=== PATIENT | male | born 1975 | race Caucasian/White ===

== ENCOUNTER 2019-08-14 13:25 | Emergency (ER) | payer SELFPAY ==
[2019-08-14 13:35] VITALS: BP 138/93; PULSE 97; RESP 18; TEMP 36.4; O2SAT 94; BMI 23.2
--- NOTE | 2019-08-14 13:46 | XR_ITS ---
WS: [id number] PORTABLE CHEST HISTORY: chest pain COMPARISON: 05/03/2016 Lungs are clear and well expanded. No pleural effusion or pneumothorax. Cardiac size: Normal. Mediastinum/Aorta: Normal mediastinum. No osseous abnormality seen. XR/XR chest 1V portable [id number] IMPRESSION: Unremarkable portable chest.
--- NOTE | 2019-08-14 13:46 | ECG_ITS ---
Measurements Intervals [place] Rate: 91 P: 54 LA: 145 QRS: 42 QRSD: 93 T: 64 QT: 340 QTc: 419 SINUS RHYTHM Compared to ECG 05/03/2016 07:29:48 Sinus arrhythmia no longer present Left ventricular hypertrophy no longer present Electronically Signed On 08-14-2019 19:52:32 CDT by Patience Newberry M.D. [id number]
[2019-08-14 14:10] LABS: Basophils % 0.2 %; Eosinophils # 0.1 10^3/uL (0.0-0.8); Eosinophils % 1.1 %; Hematocrit 45.4 % (42.0-52.0); Hemoglobin 15.6 g/dL (11.7-16.6); Lymphocytes # 3.5 10^3/uL (0.8-4.8); Lymphocytes % 30.8 %; Mean Corpuscular HGB Conc 34.4 g/dL (30.0-36.0); Mean Corpuscular Hemoglobin 34.1 pg (28.0-34.0); Mean Corpuscular Volume 99.3 fL (80-94); Mean Platelet Volume 8.9 fL (7.4-10.4); Monocytes # 0.8 10^3/uL (0.2-0.9); Monocytes % 6.7 %; Neutrophils % 60.8 %; Nucleated Red Blood Cells % 0 %; Platelet Count 206 10^3/cmm (130-400); Red Blood Count 4.57 10^6/uL (4.1-5.3); Red Cell Distribution Width 11.7 % (12.1-15.1); White Blood Count 11.4 10^3/uL (4.0-10.0)
[2019-08-14 14:29] LABS: Troponin(5th) Baseline 6 ng/mL (0-15)
[2019-08-14 14:30] LABS: Alanine Aminotransferase 51 U/L (0-41); Albumin Level 4.9 g/dL (3.5-5.2); Alkaline Phosphatase 112 IU/L (40-130); Anion Gap 25.1 (5-19); Aspartate Amino Transferase 65 U/L (0-40); Blood Urea Nitrogen 7 mg/dL (6-20); Calcium 9.5 mg/dL (8.5-10.5); Carbon Dioxide 21 mmol/L (22-29); Chloride 97 mmol/L (98-107); Globulin 2.8 g/dL (1.3-4.6); Glomerular Filtration Rate 179.8 mL/min (90-130); Glucose 85 mg/dL (65-115); Osmolality Calculated 283 mOsm/kg (285-295); Potassium 4.1 mmol/L (3.5-5.1); Sodium 139 mmol/L (136-145); Total Bilirubin 0.4 mg/dL (0.15-1.2); Total Protein 7.7 g/dL (6.6-8.7)
[2019-08-14 15:08] VITALS: BP 136/68; PULSE 76; RESP 18; O2SAT 94
--- NOTE | 2019-08-14 15:46 | ECG_ITS ---
Measurements Intervals [place] Rate: 67 P: 31 NV: 122 QRS: 58 QRSD: 94 T: 56 QT: 375 QTc: 397 SINUS RHYTHM Compared to ECG 05/03/2016 07:29:48 Sinus arrhythmia no longer present Left ventricular hypertrophy no longer present Electronically Signed On 08-14-2019 19:56:57 CDT by Patience Newberry M.D. [id number]
[2019-08-14] MEDS: fluorescein 1 mg Strip EYE-RIGHT (16:31)
[2019-08-14 16:59] LABS: Troponin 5 2HR Delta 0 ABS# (0-10)
[2019-08-14] MEDS: eye irrigation 30 mL Btl EYE-RIGHT (16:59)
[2019-08-14] MEDS: tetracaine 0.5% Op Soln 4 mL Btl 1 DROP EYE-RIGHT (17:00)
--- NOTE | 2019-08-14 17:12 | W.ED.CHESTPA ---
HPI - Chest Pain General: Chief Complaint: Chest Pain Stated Complaint: SOB, COUGH Time Seen by Provider: 08/14/19 13:45 Source: patient Mode of arrival: ambulatory Limitations: no limitations History of Present Illness: HPI narrative: 44-year-old gentleman who presented emergency department with cough, chest pain that has been going on for about a week. The patient has a history of cigarette smoking and alcohol use. He says he has generalized weakness. He has had several tick bites in the last few weeks. He has chills but no fever. He does have some myalgia. He just feels generally unwell MD complaint: chest pain and chest heaviness Onset (ago): week(s) (1) Timing of current episode: constant Prior episodes: No Onset: during rest Pain location: substernal Pain radiation: none Severity: moderate Quality: heaviness Relieving factors: nothing Exacerbating factors: nothing Associated symptoms: Deny abdominal pain, dyspnea, fever(s), nausea, palpitations or vomiting Review of Systems General: Reports: 10 or more systems reviewed and unremarkable except in HPI and below Const: Denies: fever(s), chills or body aches Eyes: Denies: change in vision or blurry vision ENMT: Denies: throat pain, enlarged tonsils, odynophagia, hoarseness, mouth pain or swelling of lips/tongue Card: Reports: chest pain; Denies: palpitations, irregular heart rhythm, edema or swelling of feet/ankles Resp: Denies: dyspnea, productive cough or non-productive cough GI: Denies: abdominal pain, nausea or vomiting : Denies: flank pain, dysuria, urinary frequency, urinary urgency or urinary hesitancy Musc: Denies: neck pain, back pain or extremity swelling Skin/Breast: Denies: rash, pruritus or erythema Neuro: Denies: headache(s), numbness in extremities or weakness in extremities Endo: Denies: polyuria, polydipsia or tired all the time PFSH ED PFSH: Social History Smoking and tobacco status: current every day smoker Physical Exam Const: COMMON NORMALS: no acute distress, average body habitus, patient oriented x3, no limitations, healthy appearing, alert and well nourished HENMT: COMMON NORMALS: normocephalic, atraumatic and moist oral mucous membranes HEAD & SCALP: normocephalic and atraumatic Eye: COMMON NORMALS: Equal, round and reactive pupils present, EOMs intact bilaterally and no scleral icterus CONJUNCTIVA: Yes conjunctival abnormal positive right conjunctival injection CORNEA: Yes fluorescein used PUPIL: Yes Equal, round and reactive pupils present OTHER: fluorescein eye exam on the right showed significant dye uptake laterally. Neck/C-Spine: COMMON NORMALS: full ROM, supple, no meningeal signs, no JVD and No carotid bruits Resp: COMMON NORMALS: normal respiratory effort, No retractions, No use of accessory muscles, clear to auscultation bilaterally and percussion normal AUSCULTATION: clear to auscultation bilaterally PERCUSSION: percussion normal Cardio: COMMON NORMALS: no JVD, regular rate, regular rhythm, S1 normal heart sound present, S2 normal heart sound present, No gallops present (Cardio), No clicks present (Cardio), No murmurs present (Cardio), No rub (Cardio) and Peripheral pulses 2+ throughout RATE: regular rate RHYTHM: regular rhythm HEART SOUNDS: S1 normal heart sound present and S2 normal heart sound present PERIPHERAL PULSES: Peripheral pulses 2+ throughout GI: COMMON NORMALS: Normal to inspection, nondistended, normoactive bowel sounds present, Soft to palpation, non-tender, No hepatosplenomegaly present, no masses and no bruits PALPATION: Yes Soft to palpation and Yes No hepatosplenomegaly present : COMMON NORMALS: Yes no CVA tenderness BLADDER/KIDNEY EXAM: Yes no CVA tenderness Back/Pelvis: COMMON NORMALS: no CVA tenderness Extremity: COMMON NORMALS: normal to inspection, full ROM, capillary refill normal, no calf tenderness and no pedal edema Neuro: COMMON NORMALS: patient oriented x3 SENSORIUM/ORIENTATION: Yes alert MENINGEAL SIGNS: Yes no meningeal signs Skin: COMMON NORMALS: no rashes or lesions noted, no wounds, turgor normal, no jaundice, no petechiae and no mottling GENERAL SKIN EXAM: no rashes or lesions noted and turgor normal Course Vital Signs: Vital signs: Vital Signs Temperature 97.6 F 08/14/19 13:35 Pulse Rate 79 08/14/19 17:26 Respiratory Rate 18 08/14/19 17:26 Blood Pressure 152/98 08/14/19 17:26 Pulse Oximetry 96 05/27/20 17:26 MDM - Chest Pain MDM Narrative: Medical decision making narrative: This 44 year old male with nonspecific symptoms of cough and chest pain. Examination was unremarkable other than a corneal abrasion. Labs were also unremarkable. Since he has generalized weakness and malaise and has had a history of several tick bites recently I am treating him as a tickborne illness with oral doxycycline. Take panel was sent out and he will be contacted with the result. Medical Records: Attestation: I reviewed the patient's medical records. Lab Data: Attestation: I reviewed the patient's lab results. Labs: Lab Results 08/14/19 08/14/19 08/14/19 Range/Units 13:45 13:45 13:45 WBC 11.4 H (4.0-10.0) 10^3/ uL RBC 4.57 (4.1-5.3) 10^6/u L Hgb 15.6 (11.7-16.6) g/dL Hct 45.4 (42.0-52.0) % MCV 99.3 H (80-94) fL MCH 34.1 H (28.0-34.0) pg MCHC 34.4 (30.0-36.0) g/dL RDW 11.7 L (12.1-15.1) % Plt Count 206 (130-400) 10^3/c mm MPV 8.9 (7.4-10.4) fL Neut % (Auto) 60.8 % Lymph % (Auto) 30.8 % [place] % (Auto) 6.7 % Eos % (Auto) 1.1 % Baso % (Auto) 0.2 % Neut # (Auto) 7.0 (1.8-7.7) 10^3/u L Lymph # (Auto) 3.5 (0.8-4.8) 10^3/u L [place] # (Auto) 0.8 (0.2-0.9) 10^3/u L Eos # (Auto) 0.1 (0.0-0.8) 10^3/u L Baso # (Auto) 0.0 (0.0-0.1) 10^3/u L Nucleated RBC % (a uto) 0 % Nucleated RBCs # 0.0 /100WBC Sodium 139 (136-145) mmol/L Potassium 4.1 (3.5-5.1) mmol/L Chloride 97 L (98-107) mmol/L Carbon Dioxide 21 L (22-29) mmol/L Anion Gap 25.1 H (5-19) BUN 7 (6-20) mg/dL Creatinine 0.5 L (0.7-1.2) mg/dL GFR Calculation 179.8 H (90-130) mL/min Glucose 85 (65-115) mg/dL Calculated Osmolal ity 283 L (285-295) mOsm/k g Calcium 9.5 (8.5-10.5) mg/dL Total Bilirubin 0.4 (0.15-1.2) mg/dL AST 65 H (0-40) U/L ALT 51 H (0-41) U/L Alkaline Phosphata se 112 (40-130) IU/L Troponin T Baselin e 6 (0-15) ng/mL Troponin T 120 Min aki (0-15) ng/mL Delta Troponin T (0-10) ABS# Total Protein 7.7 (6.6-8.7) g/dL Albumin 4.9 (3.5-5.2) g/dL Globulin 2.8 (1.3-4.6) g/dL 08/14/19 Range/Units 16:35 WBC (4.0-10.0) 10^3/ uL RBC (4.1-5.3) 10^6/u L Hgb (11.7-16.6) g/dL Hct (42.0-52.0) % MCV (80-94) fL MCH (28.0-34.0) pg MCHC (30.0-36.0) g/dL RDW (12.1-15.1) % Plt Count (130-400) 10^3/c mm MPV (7.4-10.4) fL Neut % (Auto) % Lymph % (Auto) % [place] % (Auto) % Eos % (Auto) % Baso % (Auto) % Neut # (Auto) (1.8-7.7) 10^3/u L Lymph # (Auto) (0.8-4.8) 10^3/u L [place] # (Auto) (0.2-0.9) 10^3/u L Eos # (Auto) (0.0-0.8) 10^3/u L Baso # (Auto) (0.0-0.1) 10^3/u L Nucleated RBC % (a uto) % Nucleated RBCs # /100WBC Sodium (136-145) mmol/L Potassium (3.5-5.1) mmol/L Chloride (98-107) mmol/L Carbon Dioxide (22-29) mmol/L Anion Gap (5-19) BUN (6-20) mg/dL Creatinine (0.7-1.2) mg/dL GFR Calculation (90-130) mL/min Glucose (65-115) mg/dL Calculated Osmolal ity (285-295) mOsm/k g Calcium (8.5-10.5) mg/dL Total Bilirubin (0.15-1.2) mg/dL AST (0-40) U/L ALT (0-41) U/L Alkaline Phosphata se (40-130) IU/L Troponin T Baselin e (0-15) ng/mL Troponin T 120 Min aki 6.00 (0-15) ng/mL Delta Troponin T 0 (0-10) ABS# Total Protein (6.6-8.7) g/dL Albumin (3.5-5.2) g/dL Globulin (1.3-4.6) g/dL Imaging Data^: CXR: Radiologist's impression: [address] [address] XRay Report Signed Patient: Connor Toney #: [id number] : 1975Acct#:[id number] Age/Sex: 44 / MADM Date: 08/14/19 [facility] Attending Dr: Ordering Provider/Ordering MD: Isabel Conner Date of Service: 08/14/19 Procedure(s): XR chest 1V portable [id number] Accession Number(s): [id number] Report Number: [id number] WS: [id number] PORTABLE CHEST HISTORY: chest pain COMPARISON: 05/03/2016 Lungs are clear and well expanded. No pleural effusion or pneumothorax. Cardiac size: Normal. Mediastinum/Aorta: Normal mediastinum. No osseous abnormality seen. XR/XR chest 1V portable [id number] IMPRESSION: Unremarkable portable chest. EKG Data^: EKG 1: Attestation: I personally reviewed and interpreted this EKG as follows: EKG interpretation date: 08/14/19 EKG interpretation time: 13:44 Prior EKG tracings: not available for review Interpretation: Normal sinus rhythm. Heart rate 91 bpm. Normal axis, no ST changes. EKG 2: Attestation: I personally reviewed and interpreted this EKG as follows: EKG interpretation date: 08/14/19 EKG interpretation time: 15:48 Prior EKG tracings: available for review Interpretation: Unchanged from earlier today Discharge Plan Discharge Patient Disposition: Home, Self-Care Clinical Impression: At high risk for tick borne illness Corneal abrasion Qualifiers: Encounter type: initial encounter Laterality: right Qualified Code(s): S05.01XA - Injury of conjunctiva and corneal abrasion without foreign body, right eye, initial encounter Condition: Stable Prescriptions: New doxycycline hyclate 100 mg capsule 100 mg PO BID 7 Days Qty: 14 RF: 0 erythromycin 5 mg/gram (0.5 %) ointment 1 applic ophthalmic (eye) Q6H Qty: 3.5 RF: 0 Continued Multiple Vitamins Tablet 1 tab PO DAILY RF: 0 Coricidin HBP Cough and Cold 4-30 mg Tablet 1 tab PO PRN RF: 0 Discharge Orders: Discharge Order (Routine); Ordered 08/14/19 Ordered By: Rob Colmenares Referrals: Aj Lu [Primary Care Provider] - 4-7 days Patient Instructions: Tick Bite (ED), Corneal Abrasion (ED) Activity Restrictions/Additional Instructions: Return for any new or worsening symptoms. Follow-up with an eye doctor within 3 days. Follow-up with your primary care provider within 1 week. Take the antibiotic as prescribed. You will be contacted with the results of the tick panel. Discharge Date/Time: 08/14/19 17:32 Coding Level of Care Code ED Oliving Machine Operator for Chg Fwd Exam Comprehensive
[2019-08-14 17:26] VITALS: BP 152/98; PULSE 79; RESP 18; O2SAT 96
[2019-08-15 13:02] LABS: Lyme AB Screen <0.90 index
[2019-08-17 22:01] LABS: E. Chaffeensis AB IGG <1:64; E. Chaffeensis AB IGM <1:20; RMSF IGG NOT DETECTED; RMSF IGM NOT DETECTED
== END 2019-08-14 17:32 | disposition home or self-care (01) ==
PROVIDERS: Physician Assistant; Emergency Provider Family Medicine; PCP Physician Assistant
DX: S05.01XA Injury of conjunctiva and corneal abrasion without foreign body, right eye, initial encounter (principal); X58.XXXA Exposure to other specified factors, initial encounter; F17.210 Nicotine dependence, cigarettes, uncomplicated
CPT/HCPCS: 12345; 36415; 71045; 80053; 84484; 85025; 93005; 99282; 99283

== ENCOUNTER 2022-08-08 11:14 | Outpatient (CLI) | payer OTHER, SELFPAY ==
--- NOTE | 2022-08-08 11:27 | XR_ITS ---
WS: [id number] CERVICAL SPINE TECHNIQUE: 3 views of the cervical spine CLINICAL INFORMATION: NECK PAIN COMPARISON: CT 2017 FINDINGS: Normal C1-C2 articulation. Mild spondylitic changes cervical spine. Disc space narrowing worse at C5- C6. Slight retrolisthesis C5 on C6. Lung apices are well aerated. Mild facet arthropathy in the LEFT greater than RIGHT mid cervical spine. Normal dens. Mild chronic anterior wedging partially visualize d in the upper thoracic spine. No other acute findings. XR/XR cervical spine 3V* [id number] IMPRESSION: 1. Mild spondylitic changes cervical spine. 2. Disc space narrowing worse at C5-C6 has progressed compared to previous. Sl ight retrolisthesis C5 on C6 3. Mild chronic anterior wedging partially visualized in the upper thoracic sp ine.
--- NOTE | 2022-08-08 11:28 | XR_ITS ---
WS: [id number] LUMBAR SPINE TECHNIQUE: 3 views of the lumbar spine CLINICAL INFORMATION: LOW BACK PAIN COMPARISON: None. FINDINGS: Mild lumbar curve. No acute compression fractures. Five yuf-uao-csexgct lumbar vertebral bodies. Mild disc space narrowing L5-S1. Mild facet arthropathy L5-S1. Disc space heights are otherwise well preserved. Visualized sacroiliac joints are normal. Normal vis ualized soft tissues. Partially visualized bowel gas pattern is normal. XR/XR lumbar spine 2-3V* [id number] IMPRESSION: 1. Mild lumbar curve. No acute compression fractures. 2. Mild disc space narrowing L5-S1. 3. Mild facet arthropathy L5-S1.
== END 2022-08-08 11:15 | disposition home or self-care (01) ==
PROVIDERS: PCP Physician Assistant; Visit Provider Dermatology
DX: M54.50 Low back pain, unspecified (principal); M48.07 Spinal stenosis, lumbosacral region; M47.817 Spondylosis without myelopathy or radiculopathy, lumbosacral region; M54.2 Cervicalgia; M47.812 Spondylosis without myelopathy or radiculopathy, cervical region; M48.02 Spinal stenosis, cervical region
CPT/HCPCS: 72040; 72100

== ENCOUNTER 2024-07-03 10:38 | Emergency (ER) | payer MEDICAID, SELFPAY ==
[2024-07-03] VITALS (7 sets, daily range): BP systolic 116–142; BP diastolic 75–92; PULSE 69–114; RESP 18; TEMP 36.7; O2SAT 94–99; BMI 22.6
--- NOTE | 2024-07-03 10:57 | ECG_ITS ---
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 Measurements Intervals [place] Rate: 96 P: 78 CA: 139 QRS: 62 QRSD: 87 T: 47 QT: 328 QTc: 416 Interpretive Statements SINUS RHYTHM Compared to ECG 08/14/2019 15:48:25 No significant changes Electronically Signed On 07-03-2024 21:25:28 CDT by Ophelia Wiseman M.D. [id number]
--- NOTE | 2024-07-03 10:57 | XRR_ITS ---
PROCEDURE INFORMATION: Exam: XR Chest Exam date and time: 07/03/2024 11:00 AM Age: 49 years old Clinical indication: Pain; Angina pectoris; Additional info: Chest pain TECHNIQUE: Imaging protocol: Radiologic exam of the chest. Views: 1 view. COMPARISON: CR XR chest 1V portable [id number] 08/14/2019 1:50 PM FINDINGS: Lungs: No consolidation. Pleural spaces: No sizable pleural effusion or pneumothorax. Heart/Mediastinum: No cardiomegaly. Bones/joints: Unremarkable. XR/XR chest 1V portable [id number] IMPRESSION: No acute intrathoracic findings.
--- NOTE | 2024-07-03 11:04 | W.ED.CHESTPA ---
HPI - Chest Pain General: Chief Complaint: Chest Pain Stated Complaint: chest pain Time Seen by Provider: 07/03/24 10:52 History of Present Illness: 49-year-old man with history of tobacco dependence and no other known medical problems who presents emergency room with chest pain and shortness of breath. He says he has been feeling worse for the last couple of days. He has been feeling more short of breath. He had more cough. He had a sharp left central chest pain. Has had pain into his left arm. He has been feeling more short of breath. No lower extremity swelling. No abdominal pain. No nausea or vomiting. No known fevers. Related Data Previous Rx's ?Medication ?Instructions ?Recorded albuterol sulfate 90 mcg/actuation 2 inh inhalation Q4H PRN shortness 07/03/24 aerosol inhaler of breath or wheezing #6.7 grams doxycycline hyclate 100 mg capsule 100 mg PO BID 7 days #14 caps 07/03/24 prednisone 20 mg tablet 60 mg (3 x 20 mg) PO DAILY 5 days 07/03/24 #15 tabs Allergies Allergy/AdvReac Type Severity Reaction Status Date / Time Penicillins Allergy Unknown Verified 07/03/24 10:49 Review of Systems Narrative: Constitutional symptoms: Negative except as documented in HPI. Skin symptoms: Negative except as documented in HPI. Eye symptoms: Negative except as documented in HPI. ENMT symptoms: Negative except as documented in HPI. Respiratory symptoms: Negative except as documented in HPI. Cardiovascular symptoms: Negative except as documented in HPI. Gastrointestinal symptoms: Negative except as documented in HPI. Genitourinary symptoms: Negative except as documented in HPI. Musculoskeletal symptoms: Negative except as documented in HPI. Neurologic symptoms: Negative except as documented in HPI. Psychiatric symptoms: Negative except as documented in HPI. Endocrine symptoms: Negative except as documented in HPI. PFSH ED PFSH: Social History Smoking and tobacco/nicotine status: current every day tobacco/nicotine user Physical Exam Narrative: EXAM NARRATIVE: General: Alert, no acute distress. Skin: Warm, dry. Head: Normocephalic, atraumatic. Neck: Supple, trachea midline. Eye: Extraocular movements are intact. Ears, nose, mouth and throat: mucosa moist. Cardiovascular: Regular, Normal peripheral perfusion. Respiratory: Lungs are clear to auscultation, respirations are non-labored, breath sounds are equal, Symmetrical chest wall expansion. Gastrointestinal: Soft, Nontender, Non distended Musculoskeletal: Normal ROM, no deformity. Neurological: Alert and oriented, No focal neurological deficit observed. Psychiatric: Cooperative, appropriate mood & affect. Course Vital Signs: Vital signs: Vital Signs Temperature 98.0 F 07/03/24 10:41 Pulse Rate 88 07/03/24 13:30 Respiratory Rate 18 07/03/24 11:25 Blood Pressure 142/92 07/03/24 13:30 Pulse Oximetry 96 07/03/24 13:30 Oxygen Delivery Me thod Room Air 07/03/24 13:30 MDM - Chest Pain Medical Decision Making Differential diagnosis for patient with chest pain includes but is not limited to and based on the above HPI, review of systems and physical exam: Pneumonia. unstable angina. angina. Acute coronary syndrome / [place]. Pulmonary embolism. Costochondritis / musculoskeletal. Pleurisy. Pericarditis. Esophageal spasm. Pancreatis. Cholecystitis. Orders placed to evaluate differential diagnosis based on the above differential, HPI and physical exam EK:44 AM. Rate 77. Normal sinus rhythm, No ST-T changes, no ectopy, normal DE & QRS intervals, This was reviewed and interpreted by myself the ER physician at 10:50 AM. Chest x-ray: No acute process. No infiltrate. No pneumothorax. This was reviewed and interpreted by myself the emergency room physician. I also reviewed the radiology report. Lab Review: Laboratory results were reviewed and interpreted by myself the emergency room physician. Lab work is unremarkable. No leukocytosis. No anemia. No renal failure. Flu COVID and RSV are negative. Serial troponins are negative. I reviewed the patient's medical record. Reexamination: Patient remained stable. No increased work of breathing. No altered mental status. No focal motor deficits. Assessment and plan: Bronchitis Noncardiac chest pain Tobacco dependence ? IV Solu-Medrol and p.o. doxycycline in the emergency room. - Discharged home - Discussed plan with patient. Answered any questions. - Evaluation and treatment of this problem were appropriate in the emergency setting. Lab Data 07/03/24 11:16 07/03/24 11:16 Radiology Impressions Chest X-Ray 07/03/24 10:57 IMPRESSION: No acute intrathoracic findings. Laboratory Results WBC 11.30 10^3/uL (3.29-11.43) 07/03/24 11:16 RBC 4.37 10^6/uL (3.85-5.65) 07/03/24 11:16 Hgb 15.50 g/dL (11.27-16.99) 07/03/24 11:16 Hct 45.5 % (37-53) 07/03/24 11:16 MCV 104.1 fl (82-101) H 07/03/24 11:16 MCH 35.5 pg (27-33) H 07/03/24 11:16 MCHC 34.1 g/dL (30-55) 07/03/24 11:16 RDW 11.8 % (12.1-15.1) L 07/03/24 11:16 Plt Count 210 10^3/cmm (157-399) 07/03/24 11:16 MPV 9.2 fL (7.4-10.4) 07/03/24 11:16 Neut % (Auto) 78.3 % 07/03/24 11:16 Lymph % (Auto) 13.7 % 07/03/24 11:16 [place] % (Auto) 7.5 % 07/03/24 11:16 Eos % (Auto) 0.0 % 07/03/24 11:16 Baso % (Auto) 0.2 % 07/03/24 11:16 Neut # (Auto) 8.85 10^3/uL (1.8-7.7) H 07/03/24 11:16 Lymph # (Auto) 1.6 10^3/uL (0.8-4.8) 07/03/24 11:16 [place] # (Auto) 0.9 10^3/uL (0.2-0.9) 07/03/24 11:16 Eos # (Auto) 0.0 10^3/uL (0.0-0.8) 07/03/24 11:16 Baso # (Auto) 0.0 10^3/uL (0.0-0.1) 07/03/24 11:16 Nucleated RBC % (auto) 0 % 07/03/24 11:16 Nucleated RBCs # 0.0 /100WBC 07/03/24 11:16 Sodium 139 mmol/L (136-145) 07/03/24 11:16 Potassium 3.7 mmol/L (3.5-5.1) 07/03/24 11:16 Chloride 100 mmol/L (98-107) 07/03/24 11:16 Carbon Dioxide 21 mmol/L (22-29) L 07/03/24 11:16 Anion Gap 21.7 (5-19) H 07/03/24 11:16 BUN 9 mg/dL (6-20) 07/03/24 11:16 Creatinine 0.5 mg/dL (0.7-1.2) L 07/03/24 11:16 GFR Calculation 176.0 mL/min (90-130) H 07/03/24 11:16 Glucose 94 mg/dL (65-115) 07/03/24 11:16 Calculated Osmolality 286 mOsm/kg (285-295) 07/03/24 11:16 Lactic Acid 2.1 mmol/L (0.5-2.2) 07/03/24 11:16 Calcium 9.3 mg/dL (8.5-10.5) 07/03/24 11:16 Total Bilirubin 0.8 mg/dL (0.15-1.2) 07/03/24 11:16 AST 51 U/L (0-40) H 07/03/24 11:16 ALT 33 U/L (0-41) 07/03/24 11:16 Alkaline Phosphatase 101 U/L (40-130) 07/03/24 11:16 Troponin T Baseline < 6 ng/L (0-15) 07/03/24 11:16 Troponin T 120 Minute 6.00 ng/L (0-15) 07/03/24 12:54 Delta Troponin T 0.27450 ABS# (0-10) 07/03/24 12:54 C-Reactive Protein 15.0 mg/L (0.0-4.9) H 07/03/24 11:16 NT-Pro-B Natriuret Pep 93 pg/mL (0-125) 07/03/24 11:16 Total Protein 6.9 g/dL (6.6-8.7) 07/03/24 11:16 Albumin 4.7 g/dL (3.5-5.2) 07/03/24 11:16 Globulin 2.2 g/dL (1.3-4.6) 07/03/24 11:16 Lipase 26 U/L (13-60) 07/03/24 11:16 Influenza A (PCR) Negative (Negative) 07/03/24 11:15 Influenza Type B (PCR) Negative (Negative) 07/03/24 11:15 RSV (PCR) Negative (Negative) 07/03/24 11:15 SARS-CoV-2 (PCR) Negative (Negative) 07/03/24 11:15 All radiology interpretation(s) finalized by discharge Discharge Plan Discharge Patient Disposition: Home Clinical Impression: Bronchitis, Non-cardiac chest pain, Tobacco dependence Condition: Stable Prescriptions: New doxycycline hyclate 100 mg capsule 100 mg PO BID 7 Days Qty: 14 0RF prednisone 20 mg tablet 60 mg PO DAILY 5 Days Qty: 15 0RF albuterol sulfate 90 mcg/actuation HFA aerosol inhaler 2 inh inhalation Q4H PRN (Reason: shortness of breath or wheezing) Qty: 6.7 0RF Rx Instructions: Please provide patient with a spacer Discharge Orders: Discharge ED (Routine); Ordered 07/03/24 Ordered By: Kathia Jewell Referrals: Kerri Song FNP [Primary Care Provider] - Discharge Diet: Usual diet Discharge Activity: Increase activity as tolerated Patient Instructions: Acute Bronchitis (ED), How to Use a Metered-Dose Inhaler and a Spacer (ED), Noncardiac Chest Pain (ED), Opioid Safety, Pain Management Activity Restrictions/Additional Instructions: Thank you for choosing [facility] for your healthcare needs today. Please realize this is an emergency room and that we are providing you with a medical screening exam and this may not be complete and all inclusive of all the testing and or work up that you may need to determine your ailment or severity of your illness. You have been screened and evaluated and felt safe for discharge. Health conditions do change or evolve sometimes and as such it is important that you follow up with your Primary Doctor to be re checked, 3-5 days is a general good time frame for follow up. You are always welcome to return to the ED for re assessment if your symptoms are worsening or you have new concerns Print Language: Cook Islander Coding Level of Care Code ED Casting Machine Operator Helper for Roxann Lo
[2024-07-03 11:26] LABS: Basophils % 0.2 %; Hematocrit 45.5 % (37-53); Lymphocytes # 1.6 10^3/uL (0.8-4.8); Lymphocytes % 13.7 %; Mean Corpuscular HGB Conc 34.1 g/dL (30-55); Mean Corpuscular Hemoglobin 35.5 pg (27-33); Mean Corpuscular Volume 104.1 fl (82-101); Mean Platelet Volume 9.2 fL (7.4-10.4); Monocytes # 0.9 10^3/uL (0.2-0.9); Monocytes % 7.5 %; Neutrophils # 8.85 10^3/uL (1.8-7.7); Neutrophils % 78.3 %; Nucleated Red Blood Cells % 0 %; Platelet Count 210 10^3/cmm (157-399); Red Blood Count 4.37 10^6/uL (3.85-5.65); Red Cell Distribution Width 11.8 % (12.1-15.1)
[2024-07-03 11:47] LABS: Lactic Sepsis W/Reflex 2.1 mmol/L (0.5-2.2); Troponin(5th) Baseline < 6 ng/L (0-15)
[2024-07-03 12:02] LABS: Influenza A NEGATIVE (Negative); Influenza B NEGATIVE (Negative); Respiratory Syncytial Virus Ce NEGATIVE (Negative); SARS-CoV-2 PCR NEGATIVE (Negative)
[2024-07-03 12:05] LABS: Alanine Aminotransferase 33 U/L (0-41); Albumin Level 4.7 g/dL (3.5-5.2); Alkaline Phosphatase 101 U/L (40-130); Anion Gap 21.7 (5-19); Aspartate Amino Transferase 51 U/L (0-40); Blood Urea Nitrogen 9 mg/dL (6-20); Calcium 9.3 mg/dL (8.5-10.5); Carbon Dioxide 21 mmol/L (22-29); Chloride 100 mmol/L (98-107); Globulin 2.2 g/dL (1.3-4.6); Glucose 94 mg/dL (65-115); Lipase 26 U/L (13-60); NT Pro B Type Natriuretic Pept 93 pg/mL (0-125); Osmolality Calculated 286 mOsm/kg (285-295); Potassium 3.7 mmol/L (3.5-5.1); Sodium 139 mmol/L (136-145); Total Bilirubin 0.8 mg/dL (0.15-1.2); Total Protein 6.9 g/dL (6.6-8.7)
--- NOTE | 2024-07-03 12:32 | ECG_ITS ---
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 Measurements Intervals [place] Rate: 66 P: 32 IN: 102 QRS: 76 QRSD: 90 T: 48 QT: 369 QTc: 389 Interpretive Statements SINUS RHYTHM WITH SINUS ARRHYTHMIA WITH SHORT IN INTERVAL Compared to ECG 07/03/2024 10:44:57 Short IN interval now present Electronically Signed On 07-03-2024 21:44:55 CDT by Ophelia Wiseman M.D. [email or web address]
[2024-07-03 13:10] LABS: Reflex Lactate Order REFLEX LACTIC ORDERD
[2024-07-03 13:20] LABS: Troponin 5 2HR Delta 0.00001 ABS# (0-10)
[2024-07-03] MEDS: methylPREDNISolone sod succ 125 mg/2 mL INJ IVP (13:58)
[2024-07-03] MEDS: doxycycline 100 mg Tablet PO (13:59)
== END 2024-07-03 14:06 | disposition home or self-care (01) ==
PROVIDERS: Emergency Provider Emergency Medicine; PCP Nurse Practitioner
DX: J40 Bronchitis, not specified as acute or chronic (principal); R07.89 Other chest pain; Z11.52 Encounter for screening for COVID-19; F17.200 Nicotine dependence, unspecified, uncomplicated
CPT/HCPCS: 36415; 71045; 80053; 83605; 83690; 83880; 84484; 85025; 86140; 87040; 87637; 93005; 96374; 99285; J2919; J9999